=== PATIENT | female | born 1990 | race African-American/Black ===

== ENCOUNTER 2018-01-08 10:51 | Observation (INO) ==
[2018-01-08 13:44] LABS: Basophils % 0.2 % (0.0-0.8); Eosinophils % 0.2 % (0.00-10.9); Hematocrit 31.3 VOL% (35.7-47.0); Hemoglobin 10.1 GM/DL (12.0-16.0); Immature Granulocytes % 0.7 %; Immature Granulocytes Absolute 0.06 #; Lymphocytes # 1.8 10*3/uL (1.4-4.0); Lymphocytes % 21.2 % (21.3-54.2); Mean Corpuscular HGB Conc 32.3 GM/DL (32-36); Mean Corpuscular Hemoglobin 27 PG (27-34); Mean Corpuscular Volume 84.1 FL (87-102); Monocytes # 0.8 10*3/uL (0.11-0.8); Monocytes % 9.3 % (1.7-12.7); Neutrophils # 5.9 10*3/uL (1.4-7.4); Neutrophils % 68.4 % (38.7-73.9); Platelet Count 229 T/CUMM (130-400); Red Blood Count 3.72 MC/CUMM (3.8-5.5); Red Cell Distribution Width 12.8 % (9.3-17.3); White Blood Count 8.7 T/CUMM (4-12)
[2018-01-08 13:48] LABS: Apearance,Urine CLEAR (Clear); Bilirubin,Urine Negative (Negative); Blood, Urine Negative (Negative); Glucose,Urine (UA) Negative (Negative); Ketones,Urine Negative (Negative); Nitrite,Urine Negative (Negative); Protein,Urine Negative; Squamous Epithelial Cell,Urine Occasional /HPF (0-10); Urine Color Colorless (Yellow); Urine Specific Gravity 1.002 (1.001-1.035); Urine Urobilinogen < 2.0 EU/DL (0.2-1.0); WBC,Urine <1 /HPF (0-6)
[2018-01-08 14:55] LABS: Calcium 8.7 MG/DL (8.5-10.1); Osmolality,Calculated 268.8 MOS/KG (273-304); Potassium 4.3 MMOL/L (3.5-5.1)
[2018-01-08] MEDS ORDERED: VANCOMYCIN INJ 1,250 MG in SODIUM CHLORIDE 0.9% 250 ML IV SCH (16:00)
[2018-01-08] MEDS: oxyCODONE/ACETAMINOPHEN 5-325 MG TABLET PO SCH ×2 (16:59→18:29)
[2018-01-08] MEDS ORDERED: diphenhydrAMINE 50 MG/1 ML VIAL IV PRN (18:16)
[2018-01-08] MEDS: CLINDAMYCIN INJ 600 MG in PREMIX 1 EACH IV SCH (21:50)
[2018-01-09] MEDS: oxyCODONE/ACETAMINOPHEN 5-325 MG TABLET PO SCH ×4 (00:11→13:58)
[2018-01-09] MEDS: CLINDAMYCIN INJ 600 MG in PREMIX 1 EACH IV SCH ×2 (05:06→12:07)
[2018-01-09] MEDS ORDERED: FAMOTIDINE 20 MG TABLET PO ONE (06:00)
[2018-01-09] MEDS ORDERED: CITRIC ACID/SODIUM CITRATE 30 ML UDCUP PO ONE (06:00)
[2018-01-09] MEDS ORDERED: BUPIVACAINE SPINAL 0.75% 2 ML AMP SPINAL ONE (06:48)
[2018-01-09] MEDS ORDERED: MORPHINE 10 MG/10 ML VIAL ONE (06:48)
[2018-01-09] MEDS ORDERED: CITRIC ACID/SODIUM CITRATE 30 ML UDCUP ONE (07:35)
[2018-01-09] MEDS ORDERED: PHENYLEPHRINE 1 MG/10 ML SYRINGE IV ONE (08:54)
[2018-01-09] MEDS ORDERED: ONDANSETRON 4 MG/2 ML VIAL ONE (08:54)
[2018-01-09] MEDS ORDERED: fentaNYL 100 MCG/2 ML VIAL ONE (08:54)
[2018-01-09 12:05] VITALS: BP 97/53
== END 2018-01-09 17:42 | disposition home or self-care (01) ==
LOC: N.ED 10:51 → N.EDINP 14:07 → INTOOBSV 14:07 → N.EDINP 14:54 → N.2E 15:00
PROVIDERS: ADMIT Obstetrics & Gynecology; ATTEND Obstetrics & Gynecology

== ENCOUNTER 2018-01-27 16:51 | Observation (INO) ==
[2018-01-27] MEDS ORDERED: ONDANSETRON 4 MG/2 ML VIAL IV PRN (18:16)
[2018-01-27] MEDS: AMOXICILLIN/CLAV 875 MG TABLET PO SCH (21:38)
[2018-01-28] MEDS: AMOXICILLIN/CLAV 875 MG TABLET PO SCH ×2 (08:51→17:46)
[2018-01-28] MEDS ORDERED: FAMOTIDINE 20 MG TABLET PO ONE (13:39)
[2018-01-28] MEDS: MEPERIDINE 50 MG/1 ML VIAL IV PRN ×2 (13:44→18:21)
[2018-01-28 16:32] VITALS: BP 134/84
[2018-01-28] MEDS ORDERED: MORPHINE 10 MG/10 ML VIAL ONE (16:33)
== END 2018-01-28 19:27 | disposition home or self-care (01) ==
LOC: N.2E 16:51 → N.LDOUT 16:51 → N.LD 16:52 → EDOUTPBED 18:13 → N.2E 20:16 → UNDODEPREF 02-01 12:40
PROVIDERS: ADMIT Obstetrics & Gynecology; ATTEND Obstetrics & Gynecology

== ENCOUNTER 2018-02-01 06:17 | Inpatient (IN) ==
[2018-02-01] MEDS ORDERED: MEPERIDINE 50 MG/1 ML VIAL IV PRN (07:49)
[2018-02-01] MEDS ORDERED: ONDANSETRON 4 MG/2 ML VIAL IV PRN (07:49)
[2018-02-01] MEDS ORDERED: BUTORPHANOL 2 MG/ML VIAL IV PRN (07:49)
[2018-02-01 08:26] LABS: Basophils % 0.2 % (0.0-0.8); Eosinophils % 0.5 % (0.00-10.9); Hematocrit 32.8 VOL% (35.7-47.0); Hemoglobin 10.7 GM/DL (12.0-16.0); Immature Granulocytes % 1.3 %; Immature Granulocytes Absolute 0.08 #; Lymphocytes % 32.4 % (21.3-54.2); Mean Corpuscular HGB Conc 32.6 GM/DL (32-36); Mean Corpuscular Hemoglobin 27 PG (27-34); Mean Platelet Volume 10.2 FL (9.6-12.0); Monocytes # 0.6 10*3/uL (0.11-0.8); Monocytes % 9.7 % (1.7-12.7); Neutrophils # 3.4 10*3/uL (1.4-7.4); Neutrophils % 55.9 % (38.7-73.9); Platelet Count 223 T/CUMM (130-400); Red Cell Distribution Width 13.3 % (9.3-17.3)
[2018-02-01] MEDS: OXYTOCIN/LR 20 UNIT/1,000 ML BAG IV SCH (08:35)
[2018-02-01] MEDS: LACTATED RINGERS 1,000 ML IV SCH ×2 (08:35→16:14)
[2018-02-01] MEDS ORDERED: FAMOTIDINE 20 MG/2 ML VIAL IV ONE (18:09)
[2018-02-01] MEDS ORDERED: CITRIC ACID/SODIUM CITRATE 30 ML UDCUP PO ONE (18:09)
[2018-02-01] MEDS ORDERED: LACTATED RINGERS 1,000 ML IV ONE (18:09)
[2018-02-01] MEDS ORDERED: ceFAZolin 2,000 MG in PREMIX 1 EACH IV ONE (18:10)
[2018-02-01] MEDS ORDERED: BUPIVACAINE SPINAL 0.75% 2 ML AMP SPINAL ONE (19:16)
[2018-02-01] MEDS ORDERED: METHYLERGONOVINE 0.2 MG/1 ML AMP ONE (20:15)
[2018-02-01] MEDS ORDERED: METHYLERGONOVINE 0.2 MG/1 ML AMP IM ONE (20:15)
[2018-02-01] MEDS ORDERED: PHENYLEPHRINE 1 MG/10 ML SYRINGE IV ONE (20:22)
[2018-02-01] MEDS ORDERED: ePHEDrine 50 MG/ML AMP ONE (20:23)
[2018-02-01] MEDS ORDERED: MORPHINE 10 MG/10 ML VIAL ONE (20:23)
[2018-02-01] MEDS ORDERED: SIMETHICONE CHEW 80 MG TABLET PO PRN (20:59)
[2018-02-01] MEDS ORDERED: ACETAMINOPHEN 325 MG TABLET PO PRN (20:59)
[2018-02-01] MEDS ORDERED: oxyCODONE/ACETAMINOPHEN 5-325 MG TABLET PO PRN (21:02)
[2018-02-02] MEDS: DOCUSATE SODIUM 100 MG CAPSULE PO SCH ×3 (01:17→20:35)
[2018-02-02] MEDS: ceFAZolin 1,000 MG in SYRINGE 1 EACH IV SCH (02:45)
[2018-02-02 06:47] LABS: Basophils % 0.1 % (0.0-0.8); Eosinophils % 0.1 % (0.00-10.9); Hematocrit 26.9 VOL% (35.7-47.0); Hemoglobin 8.8 GM/DL (12.0-16.0); Immature Granulocytes % 0.7 %; Immature Granulocytes Absolute 0.07 #; Lymphocytes # 1.8 10*3/uL (1.4-4.0); Lymphocytes % 17.3 % (21.3-54.2); Mean Corpuscular HGB Conc 32.7 GM/DL (32-36); Mean Corpuscular Hemoglobin 27 PG (27-34); Mean Platelet Volume 10.4 FL (9.6-12.0); Monocytes % 9.5 % (1.7-12.7); Neutrophils # 7.4 10*3/uL (1.4-7.4); Neutrophils % 72.3 % (38.7-73.9); Platelet Count 180 T/CUMM (130-400); Red Blood Count 3.32 MC/CUMM (3.8-5.5); Red Cell Distribution Width 13.2 % (9.3-17.3); White Blood Count 10.3 T/CUMM (4-12)
[2018-02-02] MEDS: MULTIVITAMIN (PRENATAL) TABLET PO SCH (09:41)
[2018-02-02] MEDS: FERROUS SULFATE 325 MG TABLET PO SCH ×2 (09:41→20:35)
[2018-02-02] MEDS: oxyCODONE/ACETAMINOPHEN 5-325 MG TABLET PO PRN ×2 (09:42→16:05)
[2018-02-02] MEDS ORDERED: ceFAZolin 1,000 MG in SYRINGE 1 EACH IV SCH (16:00)
[2018-02-02] MEDS: IBUPROFEN 800 MG TABLET PO PRN (16:06)
[2018-02-03] MEDS: LACTATED RINGERS 1,000 ML IV SCH ×3 (02:31→02:32)
[2018-02-03] MEDS: ceFAZolin 1,000 MG in SYRINGE 1 EACH IV SCH (02:32)
[2018-02-03] MEDS: OXYTOCIN/LR 20 UNIT/1,000 ML BAG IV SCH (02:32)
[2018-02-03] MEDS: oxyCODONE/ACETAMINOPHEN 5-325 MG TABLET PO PRN ×2 (07:45→17:14)
[2018-02-03] MEDS: IBUPROFEN 800 MG TABLET PO PRN ×2 (07:45→17:14)
[2018-02-03] MEDS: MULTIVITAMIN (PRENATAL) TABLET PO SCH (08:09)
[2018-02-03] MEDS: MAGNESIUM HYDROXIDE SUSP 30 ML UDCUP PO PRN (08:09)
[2018-02-03] MEDS: FERROUS SULFATE 325 MG TABLET PO SCH ×2 (08:09→21:21)
[2018-02-03] MEDS: DOCUSATE SODIUM 100 MG CAPSULE PO SCH ×2 (08:09→21:21)
[2018-02-04 09:04] VITALS: BP 112/69
[2018-02-04] MEDS: FERROUS SULFATE 325 MG TABLET PO SCH (09:39)
[2018-02-04] MEDS: MAGNESIUM HYDROXIDE SUSP 30 ML UDCUP PO PRN (09:39)
[2018-02-04] MEDS: DOCUSATE SODIUM 100 MG CAPSULE PO SCH (09:39)
[2018-02-04] MEDS: MULTIVITAMIN (PRENATAL) TABLET PO SCH (09:39)
== END 2018-02-04 13:20 | disposition home or self-care (01) | DRG 540 ==
LOC: N.LDOUT 06:17 → N.LD 06:23 → N.OB 02-02 00:03
PROVIDERS: ADMIT Obstetrics & Gynecology; ATTEND Obstetrics & Gynecology
PROC: LDCSECT (ICD-10-PCS; 2018-02-01 18:00)